=== PATIENT | female | born 2005 | race Hispanic/Latino ===

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

== ENCOUNTER → 2023-06-10 | Emergency (ER) | payer MEDICAID ==
[~2023-06-10] MED LIST: ACET-2079 PO; DOCU-116 PO; IBUP-2077 PO; PNV1TABL17 PO
== END ==
LOC: EDH 12:34
DX: O26.891 Other specified pregnancy related conditions, first trimester (principal); R10.9 Unspecified abdominal pain; Z53.21 Procedure and treatment not carried out due to patient leaving prior to being seen by health care provider

== ENCOUNTER 2023-10-05 05:13 | Inpatient (IN) | payer MEDICAID, OTHER ==
[2023-10-05] MEDS ORDERED: CEFAZOLIN SODIUM 1 GM VIAL IVPB PRN (05:30)
[2023-10-05] MEDS: LACTATED RINGERS 1000ML 1,000 ML IV SCH (05:59)
[2023-10-05 06:03] LABS: HEMATOCRIT 35.3 % (36-48); MEAN CORPUSCULAR HGB CONC 33.1 g/dL (32.0-36.0); MEAN CORPUSCULAR VOLUME 87.4 fL (80-100); RED BLOOD CELL COUNT(AUTO) 4.04 MIL/uL (4.00-5.50); RED CELL DISTRIBUTION WIDTH 13.6 % (11.0-15.5); WHITE BLOOD COUNT (AUTO) 9.9 K/uL (4.8-10.8)
[2023-10-05 06:27] LABS: APPEARANCE,URINE CLOUDY (CLEAR); BILIRUBIN,URINE NEGATIVE (NEGATIVE); COLOR,URINE YELLOW (YELLOW); GLUCOSE, URINE (UA) NEGATIVE (NEGATIVE); KETONES,URINE 5 mg/dL (NEGATIVE); LEUKOCYTE ESTERASE ,URINE 75 Leu/uL (NEGATIVE); NITRATE,URINE NEGATIVE (NEGATIVE); OCCULT BLOOD,URINE SMALL (NEGATIVE); PH,URINE 6.5 (5.0-8.0); PROTEIN,URINE 10 mg/dL (NEGATIVE); UROBILINOGEN,URINE 0.2 mg/dL (0.2-1.0)
[2023-10-05 06:31] LABS: ADD UA MICROSCOPIC YES
[2023-10-05 06:35] LABS: BACTERIA,URINE RARE /HPF (None Seen); MUCUS,URINE RARE LPF (None Seen); SQUAMOUS EPITHELIAL CELL,UR MANY /HPF (0-2)
[2023-10-05 06:48] LABS: HIV 1&2 ANTIBODY Non-Reactive (Negative)
[2023-10-05 06:49] LABS: HIV-1 p24 Antigen Non-Reactive (Negative)
[2023-10-05] MEDS ORDERED: OXYTOCIN 10 USP UNITS/ML ONE (07:27)
[2023-10-05] MEDS ORDERED: ONDANSETRON 4MG INJ ONE (07:27)
[2023-10-05] MEDS ORDERED: FENTANYL CITRATE PF 50 MCG/1 ML 2ML VIAL ONE (07:27)
[2023-10-05] MEDS ORDERED: MORPHINE PF 100MG/10ML AMP IV ONE (07:27)
[2023-10-05] MEDS ORDERED: CALDOLOR 800MG+NS 250ML 250 ML IV PRN (07:30)
[2023-10-05] MEDS ORDERED: EPHEDRINE SULFATE 50 MG/ML AMPULE ONE (07:38)
[2023-10-05] MEDS ORDERED: 0.9%NACL 10ML VIAL IVP PRN (08:30)
[2023-10-05] MEDS ORDERED: OXYTOCIN-LR 30 UNITS/500ML 500 ML IV PRN (08:30)
[2023-10-05] MEDS ORDERED: MEPERIDINE-PF 75 MG/ML SYG IM PRN (08:30)
[2023-10-05] MEDS ORDERED: PROMETHAZINE HCL 25 MG/ML 1ML AMPULE IM PRN (08:30)
[2023-10-05] MEDS: OXYTOCIN-LR 30 UNITS/500ML 500 ML IV SCH (10:15)
[2023-10-05 11:00] VITALS: BP 112/63; PULSE 76; RESP 14
[2023-10-05 12:14] LABS: RAPID PLASMA REAGIN NONREACTIVE (NONREACTIVE)
[2023-10-05 15:00] VITALS: BP 105/59; PULSE 72; RESP 15
[2023-10-05] MEDS: CALDOLOR 800MG+NS 250ML 250 ML IV SCH (15:50)
[2023-10-05] MEDS: DEXTROSE 5 %-0.45 % NACL 1,000 ML IV PRN (15:51)
[2023-10-05] MEDS: DIPH,PERTUSS(ACELL),TET VAC/PF 0.5 ML VIAL IM ONE (16:02)
[2023-10-05 19:45] VITALS: BP 109/49; PULSE 78; RESP 20
[2023-10-05 23:44] VITALS: BP 114/62; PULSE 76; RESP 18
[2023-10-06] MEDS ORDERED: HYDROCODONE/ACETAMINOPHEN 5/325 MG TAB PO PRN ×3 (03:00→07:30)
[2023-10-06] MEDS ORDERED: ACETAMINOPHEN WITH CODEINE 1 TAB TAB PO PRN ×2 (03:00→07:30)
[2023-10-06] MEDS ORDERED: ACETAMINOPHEN 500 MG TABLET PO PRN ×3 (03:00→07:30)
[2023-10-06] MEDS ORDERED: LANOLIN 30GM OINTMENT TP PRN ×3 (03:00→07:30)
[2023-10-06 03:55] VITALS: BP 105/53; PULSE 66; RESP 20
[2023-10-06 07:07] LABS: MEAN CORPUSCULAR HEMOGLOBIN 29.6 pg (27.0-33.0); MEAN CORPUSCULAR HGB CONC 32.8 g/dL (32.0-36.0); MEAN CORPUSCULAR VOLUME 90.3 fL (80-100); RED BLOOD CELL COUNT(AUTO) 3.21 MIL/uL (4.00-5.50); RED CELL DISTRIBUTION WIDTH 14.1 % (11.0-15.5); WHITE BLOOD COUNT (AUTO) 9.2 K/uL (4.8-10.8)
[2023-10-06] MEDS ORDERED: BISACODYL 10 MG SUPP.RECT RC PRN (07:30)
[2023-10-06] MEDS ORDERED: SIMETHICONE 80 MG TAB.CHEW PO PRN (07:30)
[2023-10-06 08:00] VITALS: BP 105/54; PULSE 75; RESP 16
[2023-10-06] MEDS: IBUPROFEN 800 MG TAB PO SCH (08:41)
[2023-10-06] MEDS: SIMETHICONE 80 MG TAB.CHEW PO PRN (08:42)
[2023-10-06] MEDS: DOCUSATE SODIUM 100 MG CAP PO SCH (08:42)
[2023-10-06] MEDS ORDERED: IBUPROFEN 800 MG TAB PO SCH (09:00)
[2023-10-06] MEDS ORDERED: DOCUSATE SODIUM 100 MG CAP PO SCH ×2 (09:00)
[2023-10-06 11:45] VITALS: BP 104/52; PULSE 70; RESP 18
[2023-10-06] MEDS: ACETAMINOPHEN WITH CODEINE 1 TAB TAB PO PRN (12:58)
[2023-10-06] MEDS: BISACODYL 10 MG SUPP.RECT RC PRN (15:44)
[2023-10-06 16:30] VITALS: BP 99/46; PULSE 70; RESP 14
[2023-10-06 19:20] VITALS: BP 111/66; PULSE 80; RESP 20
[2023-10-06 23:02] VITALS: BP 112/62; PULSE 74; RESP 20
[2023-10-07 03:00] VITALS: BP 110/62; PULSE 78; RESP 18
[2023-10-07 07:45] VITALS: BP 115/74; PULSE 79; RESP 18
== END 2023-10-07 10:35 | disposition home or self-care (01) | DRG 788 ==
LOC: LDH 05:13 → WSH 10:45 → EDSTATUS 10:59
PROVIDERS: ADMIT Obstetrics & Gynecology; ATTEND Obstetrics & Gynecology
PROC: 3E0234Z Introduction of Serum, Toxoid and Vaccine into Muscle, Percutaneous Approach (ICD-10-PCS; 2023-10-05)
PROC: 10D00Z1 Extraction of Products of Conception, Low, Open Approach (ICD-10-PCS; principal; 2023-10-05 07:30)
DX: O82 Encounter for cesarean delivery without indication (principal); Z37.0 Single live birth; Z3A.39 39 weeks gestation of pregnancy; K21.9 Gastro-esophageal reflux disease without esophagitis; F90.9 Attention-deficit hyperactivity disorder, unspecified type; Z23 Encounter for immunization
CPT/HCPCS: 36415; 59510; 81001; 85027; 86592; 86701; 86850; 86900; 86901; 87088; 87340; 87390; 90715; A4344; G0378; J0690; J1741; J2274; J2405; J2590; J3010; J3490; J7120; A4248; A4510; C1765; L0625